=== PATIENT | male | born 1970 | race Caucasian/White ===

== ENCOUNTER 2021-08-02 04:14 | Emergency (ER) | payer MEDICARE ==
[~2021-08-02 04:14] MED LIST: ASPIRIN CHEWABL81 MG PO; FLEXERIL10 MG PO; FUROSEMIDE 40MG40 MG PO; LASIX40 MG PO; LIPITOR40 MG PO; LOPRESSOR25 MG PO
[2021-08-02 04:49] LABS: BASOPHIL 1.3 % (0-2); EOSINOPHIL 6.1 % (0-5); HCT 49.1 % (42.0-52.0); HGB 16.4 g/dl (13.2-18.0); LYMPHOCYTE 28.9 % (15-48); MCH 30.1 pg (25.0-31.0); MCHC 33.4 g/dL (32.0-36.0); MCV 90.3 fL (78.0-100.0); MONOCYTE 9.2 % (0-12); MPV 9.7 fL (6.0-9.5); NEUTROPHIL 53.6 % (41-80); NRBC 0; PLT 146 K/uL (150-400); RBC 5.44 M/uL (4.70-6.00); RDW 13.7 % (11.5-14.0); WBC 6.9 K/uL (4.0-10.5)
[2021-08-02 05:06] LABS: ALBUMIN 3.8 g/dL (3.4-5.0); BILIRUBIN - TOTAL 0.6 mg/dL (0.2-1.0); BUN/CREAT RATIO (CALC) 20.5 RATIO; CREATININE 1.12 mg/dL (0.67-1.17); GLOBULIN (CALCULATION) 3.7 g/dL; TOTAL PROTEIN 7.5 g/dL (6.4-8.2)
[2021-08-02 06:09] LABS: BILIRUBIN NEGATIVE (NEGATIVE); BLOOD 2+ Ery/uL (NEGATIVE); CLARITY CLEAR (CLEAR); COLOR YELLOW (YELLOW); GLUCOSE (U) NORMAL (NORMAL); LEUKOCYTES NEGATIVE Leu/uL (NEGATIVE); NITRITE NEGATIVE (NEGATIVE); PROTEIN 1+ mg/dL (NEGATIVE); SPECIFIC GRAVITY >=1.030 (1.001-1.030); UROBILINOGEN 0.2 mg/dL (0.2-1.0); pH 5.5 (5.0-9.0)
[2021-08-02 06:16] LABS: MUCOUS MODERATE
[2021-08-02] MEDS ORDERED: NAPROXEN500 MG PO (06:36)
[2021-08-02] MEDS ORDERED: PERCOCET 5-3251 EACH PO (06:36)
[2021-08-02] MEDS ORDERED: ONDANSETRON ODT4 MG PO (06:40)
[2021-08-02] MEDS ORDERED: FLOMAX0.4 MG PO (06:40)
== END 2021-08-02 07:04 | disposition home or self-care (01) ==
LOC: FER 04:14
PROVIDERS: Internal Medicine
DX: N13.2 Hydronephrosis with renal and ureteral calculous obstruction (principal); D17.79 Benign lipomatous neoplasm of other sites; E11.9 Type 2 diabetes mellitus without complications
CPT/HCPCS: 36415; 80053; 81001; 83690; 85025; J1170; J1885; J2405; J7120